=== PATIENT | female | born 1970 | race Caucasian/White ===

== ENCOUNTER → 2019-01-10 12:25 | Outpatient (CLI) | payer OTHER, SELFPAY ==
--- NOTE | 2019-01-10 | DI.US.S_ITS ---
PROCEDURE: US PELVIC LIMITED INDICATIONS: PERINEAL ABSCESS; POSSIBLE TUNNELING INTO RECTUM TECHNIQUE: Real-time transabdominal scanning was performed of the pelvic organs, with image documentation. COMPARISON: None. FINDINGS: 1 x 1 x 3.5 cm complex hypoechoic structure is noted in left perineum, likely represent peritoneal abscess collection given patient's history. No definite connection into the rectal lumen is demonstrated on the ultrasound study. IMPRESSION: 1 x 1 x 3.5 cm left perineal abscess collection. No definite connection to the rectal lumen is seen. Indicated, CT or MRI of pelvis can be done for further evaluation of this region. Dictated by: Alonzo Joyce M.D. on 01/10/2019 at 14:51 Approved by: Alonzo Joyce M.D. on 01/10/2019 at 14:53
== END ==
PROVIDERS: PCP Nurse Practitioner; Visit Provider Nurse Practitioner
DX: L02.215 Cutaneous abscess of perineum (principal)
CPT/HCPCS: 76857

== ENCOUNTER → 2019-01-10 15:50 | Outpatient (CLI) | payer OTHER, SELFPAY | PROVIDERS: PCP Nurse Practitioner; Visit Provider Nurse Practitioner | DX: L02.215 Cutaneous abscess of perineum (principal) | CPT/HCPCS: 76857; 87070; 87075; 87077; 87147; 87186; 87205 ==

== ENCOUNTER → 2019-01-13 15:32 | Outpatient (CLI) | payer OTHER, SELFPAY ==
--- NOTE | 2019-01-13 15:34 | DI.CT.S_ITS ---
PROCEDURE: CT PELVIS W CON INDICATIONS: PERINEAL ABSCESS; POSSIBLE TUNNELING INTO RECTUM TECHNIQUE: After the administration of intravenous contrast, 5 mm thick sections acquired from the iliac crests to the symphysis. 5 mm coronal and sagittal reformats were acquired. For radiation dose reduction, the following was used: automated exposure control, adjustment of mA and/or kV according to patient size. COMPARISON: None. FINDINGS: Image quality: Excellent. Peritoneum and bowel: Bowel loops demonstrate normal wall thickness and caliber. No free fluid or air. Genitourinary: Bladder wall thickness is normal. Nodes and vessels: No iliac, pelvic, or inguinal adenopathy by size criteria. Iliac vessels demonstrate normal size and enhancement. Bones: No suspicious bony lesions. Miscellaneous: No inguinal hernias. There is thickening in the left perineal region extending to the skin and also extending towards the distal perirectal region findings may potentially represent a very small fluid-filled abscess with fistula. There is no air present within this structure. IMPRESSION: Question very small left perineal abscess with possible fistula towards the distal rectal region. Dictated by: Kt Ingram M.D. on 01/13/2019 at 16:30 Approved by: Kt Ingram M.D. on 01/13/2019 at 16:35
== END ==
PROVIDERS: PCP Nurse Practitioner; Visit Provider Nurse Practitioner
DX: L02.215 Cutaneous abscess of perineum (principal)
CPT/HCPCS: 72193

== ENCOUNTER → 2019-02-10 10:14 | Outpatient (CLI) | payer OTHER, SELFPAY | PROVIDERS: PCP Nurse Practitioner; Visit Provider Nurse Practitioner | DX: L02.215 Cutaneous abscess of perineum (principal) | CPT/HCPCS: 87070; 87077; 87147; 87205 ==